=== PATIENT | female | born 1990 | race African-American/Black ===

== ENCOUNTER 2016-10-31 07:09 | Emergency (ER) | payer SELFPAY | END 2016-10-31 07:18 | disposition home or self-care (01) | LOC: CED 07:09 | DX: R07.89 Other chest pain (principal); Z20.818 Contact with and (suspected) exposure to other bacterial communicable diseases; F17.200 Nicotine dependence, unspecified, uncomplicated; Z98.890 Other specified postprocedural states | CPT/HCPCS: 99282; 99283 ==